=== PATIENT | male | born 1990 | race Caucasian/White ===

== ENCOUNTER 2016-09-25 12:12 | Emergency (ER) | payer BC ==
[~2016-09-25] VITALS: Ht 185.4 cm; Wt 68.0 kg
[~2016-09-25 12:12] MED LIST: BACTROBAN22 GM TP; FAMOTIDINE PO; KEFLEX500 M1 PO; KEFLEX500 MG PO; NO MEDICATIONS; PREDNISONE PO; PREDNISONE10 MG PO; PREDNISONE10 MG/DOSE PO; VISTARIL PO
== END 2016-09-25 12:48 | disposition home or self-care (01) ==
LOC: SED 12:12
DX: L23.7 Allergic contact dermatitis due to plants, except food (principal)
CPT/HCPCS: 99282; J1100